=== PATIENT | male | born 1950 | race Caucasian/White ===

== ENCOUNTER 2017-04-22 07:09 | Observation (INO) | payer MEDICARE ==
[2017-04-22] MEDS ORDERED: LIDOCAINE 2% 20 ML VIAL. (07:33)
[2017-04-22 08:37] LABS: HEMATOCRIT 46.1 % (39.0-53.0); HEMOGLOBIN 16.5 g/dL (13.0-17.5); MEAN CORPUSCULAR HEMOGLOBIN 33 pg (25-35); MEAN CORPUSCULAR HGB CONC 36 g/dL (31-37); MEAN CORPUSCULAR VOLUME 91 fL (79-100); PLATELET COUNT 201 x10^3/uL (140-400); RED BLOOD COUNT 5.05 x10^6/uL (4.30-5.70); RED CELL DISTRIBUTION WIDTH 12.9 % (11.5-14.5); WHITE BLOOD COUNT 9.4 x10^3/uL (4.0-11.0)
[2017-04-22 08:45] LABS: ANION GAP 9 (6-14); BLOOD UREA NITROGEN 12 mg/dL (8-26); CALCIUM 9.6 mg/dL (8.5-10.1); CARBON DIOXIDE 28 mmol/L (21-32); CHLORIDE 101 mmol/L (98-107); GLUCOSE 109 mg/dL (70-99); SODIUM 138 mmol/L (136-145)
[2017-04-22 08:49] LABS: INR 1.1 (0.8-1.1); PROTHROMBIN TIME PATIENT 13.1 SEC (11.7-14.0)
[2017-04-22] MEDS ORDERED: IODIXANOL 320 MG/ML 100 ML VIAL. ×2 (09:32→10:56)
[2017-04-22] MEDS ORDERED: fentaNYL PF VIAL 100 MCG/2 ML VIAL (09:44)
[2017-04-22] MEDS ORDERED: MIDAZOLAM HCL/PF 2 MG/2 ML VIAL. (09:45)
[2017-04-22] MEDS ORDERED: VERAPAMIL 5 MG/2 ML VIAL. (09:48)
[2017-04-22] MEDS ORDERED: HEPARIN for IV BOLUS 10,000 UNIT/10 ML VIAL. ×2 (09:48→10:08)
[2017-04-22] MEDS ORDERED: NITROGLYCERIN 200 MCG/2 ML SYRINGE FOR CATH/VASC LAB. ×2 (09:49→10:38)
[2017-04-22] MEDS: LIDOCAINE 2% 20 ML VIAL. IJ (10:15)
[2017-04-22] MEDS: HEPARIN for IV BOLUS 10,000 UNIT/10 ML VIAL. IART (10:15)
[2017-04-22] MEDS: IODIXANOL 320 MG/ML 100 ML VIAL. IART (10:15)
[2017-04-22] MEDS: MIDAZOLAM HCL/PF 2 MG/2 ML VIAL. IV (10:15)
[2017-04-22] MEDS: NITROGLYCERIN 200 MCG/2 ML SYRINGE FOR CATH/VASC LAB. IART (10:15)
[2017-04-22] MEDS: VERAPAMIL 5 MG/2 ML VIAL. IART (10:15)
[2017-04-22] MEDS ORDERED: CONTRAST GIVEN MC (10:15)
[2017-04-22] MEDS: HEPARIN for IV BOLUS 10,000 UNIT/10 ML VIAL. IV (10:15)
[2017-04-22] MEDS: fentaNYL PF VIAL 100 MCG/2 ML VIAL IV (10:15)
[2017-04-22] MEDS ORDERED: TIROFIBAN 5MG -0.9% NS 100 ML IV (10:16)
[2017-04-22] MEDS: IV NORMAL SALINE 1000ML BAG 1,000 ML IV ×2 (10:45→22:57)
[2017-04-22] MEDS: PRASUGREL 10 MG TABLET. PO (11:15)
[2017-04-22] MEDS ORDERED: PRASUGREL 10 MG TABLET. (11:18)
[2017-04-22] MEDS: TIROFIBAN 5MG -0.9% NS 100 ML IV ×3 (11:39→23:27)
[2017-04-22] MEDS ORDERED: AMIODARONE 150 MG in IV DEXTROSE 5% 100 ML IV (16:15)
[2017-04-22] MEDS ORDERED: NITROGLYCERIN SUBLINGUAL 0.4 MG BOTTLE OF 25. SL (16:15)
[2017-04-22] MEDS ORDERED: fentaNYL PF VIAL 100 MCG/2 ML VIAL IV (16:15)
[2017-04-22] MEDS ORDERED: ATROPINE 0.5 MG/5 ML DISP.SYRIN. IV (16:15)
[2017-04-22] MEDS ORDERED: ACETAMINOPHEN 325 MG TABLET. PO (16:15)
[2017-04-22] MEDS ORDERED: 0.9 % SODIUM CHLORIDE 10 ML DISP.SYRIN. IV (16:15)
[2017-04-22] MEDS ORDERED: LIDOCAINE 2% 100 MG/5 ML SYRINGE. IV (16:15)
[2017-04-22] MEDS: ATORVASTATIN CALCIUM 20 MG TABLET PO (20:31)
[2017-04-22] MEDS: METOPROLOL TART IMMED RELEASE 25 MG TABLET. PO (20:32)
[2017-04-23 05:52] LABS: CHOLESTEROL 102 mg/dL (0-200); HDLC 40 mg/dL (40-60); LDLC 47 mg/dL (0-100); NON-HDL CHOLESTEROL 62 mg/dL (0-129); TRIGLYCERIDES 76 mg/dL (0-150); VLDLC 15 mg/dL (0-40)
[2017-04-23 05:53] LABS: CHOLESTEROL/HDL RATIO 2.6
[2017-04-23] MEDS: METOPROLOL TART IMMED RELEASE 25 MG TABLET. PO (09:39)
[2017-04-23] MEDS: PRASUGREL 10 MG TABLET. PO (09:39)
[2017-04-23] MEDS: ASPIRIN ENTERIC COATED 81 MG TABLET.DR. PO (09:39)
== END 2017-04-23 12:48 | disposition home or self-care (01) ==
LOC: CCL 07:09 → 2 NORTH 10:35
DX: I25.110 Atherosclerotic heart disease of native coronary artery with unstable angina pectoris (principal); R06.00 Dyspnea, unspecified; I10 Essential (primary) hypertension; E78.5 Hyperlipidemia, unspecified
CPT/HCPCS: 36415; 80048; 80061; 85027; 85610; 92928; 93454; 93571; 96365; 96366; 96375; 99152; 99153; C1713; C1725; C1769; C1887; C1892; G0378; G0379; J1644; J2250; J3010; J3490; J7030

== ENCOUNTER → 2019-08-25 | Outpatient (CLI) | payer MEDICARE ==
[2017-04-23 10:56] VITALS: BP 155/75
[~2019-08-25] MED LIST: AMLO5TAB10 PO; ASPI-482 PO; ATOR20TA PO; ATORVASTATIN CA80 MG PO; BIOT10TA PO; CALC500T31 PO; MAGN400C PO; METO25TA4 PO; METO50TA6 PO; OMEG1CAP38 PO; PRAS10TA9 PO; TURM500C4 PO; UBID100C PO; VITA-8 PO
== END | disposition home or self-care (01) ==
LOC: LAB 12:27
PROVIDERS: ATTEND Internal Medicine Gastroenterology
DX: Z11.59 Encounter for screening for other viral diseases (principal)
CPT/HCPCS: U0003-CS

== ENCOUNTER → 2019-08-31 | Day surgery (SDC) | payer MEDICARE ==
[~2019-08-31] MED LIST changes: +AZEL6DRO2 OD; +EVOL140P3 SQ; +FLUT15.812 NS; +HYDROmorphone 2 MG/ML VIAL IV PRN; +IV RINGERS,LACTATED 1000ML 1,000 ML IV SCH; +LIDOCAINE 1% PF 2 ML VIAL. ID PRN; +MELO7.5T29 PO; +MORPHINE SULFATE 2 MG/ML VIAL. IV PRN; +ONDANSETRON PF 4 MG/2 ML VIAL. IV PRN; +PROCHLORPERAZINE 10 MG/2 ML VIAL. IV PRN; +PROPOFOL 10 MG/ML (20ML) VIAL. IV ONE; +fentaNYL PF VIAL 100 MCG/2 ML VIAL IV PRN
[2019-08-31 13:42] VITALS: BP 147/86
== END | disposition home or self-care (01) ==
LOC: ENDOS 11:50
PROVIDERS: ATTEND Internal Medicine Gastroenterology
DX: R63.5 Abnormal weight gain (principal); K29.50 Unspecified chronic gastritis without bleeding; K22.2 Esophageal obstruction; I10 Essential (primary) hypertension; J43.9 Emphysema, unspecified; E78.00 Pure hypercholesterolemia, unspecified; F15.90 Other stimulant use, unspecified, uncomplicated; Z88.1 Allergy status to other antibiotic agents; Z88.8 Allergy status to other drugs, medicaments and biological substances; Z86.010 Personal history of colon polyps; Z87.39 Personal history of other diseases of the musculoskeletal system and connective tissue; Z87.891 Personal history of nicotine dependence; Z79.82 Long term (current) use of aspirin
CPT/HCPCS: 43235; 43450; J2704

== ENCOUNTER → 2020-02-12 | Outpatient (CLI) | payer MEDICARE ==
[2019-08-31 13:42] VITALS: BP 147/86
[~2020-02-12] MED LIST changes: +AMLO-186 PO; -AMLO5TAB10 PO; -HYDROmorphone 2 MG/ML VIAL IV PRN; -IV RINGERS,LACTATED 1000ML 1,000 ML IV SCH; -LIDOCAINE 1% PF 2 ML VIAL. ID PRN; -MORPHINE SULFATE 2 MG/ML VIAL. IV PRN; +OMEP20CA16 PO; -ONDANSETRON PF 4 MG/2 ML VIAL. IV PRN; -PROCHLORPERAZINE 10 MG/2 ML VIAL. IV PRN; -PROPOFOL 10 MG/ML (20ML) VIAL. IV ONE; -fentaNYL PF VIAL 100 MCG/2 ML VIAL IV PRN
== END ==
LOC: LAB 12:39
PROVIDERS: ATTEND Internal Medicine Gastroenterology
DX: Z01.812 Encounter for preprocedural laboratory examination (principal); R10.13 Epigastric pain; Z20.828 Contact with and (suspected) exposure to other viral communicable diseases
CPT/HCPCS: U0003

== ENCOUNTER → 2020-02-15 | Day surgery (SDC) | payer MEDICARE ==
[~2020-02-15] MED LIST changes: +IV RINGERS,LACTATED 1000ML 1,000 ML IV SCH
[2020-02-15 12:52] VITALS: BP 139/87
--- NOTE | 2020-02-15 13:52 | CONS ---
DATE OF CONSULTATION: 02/15/2020 REFERRING PHYSICIAN: Johny Grove MD. REASON FOR CONSULTATION: Dysphagia and followup on gastric ulcers, gastritis. HISTORY OF PRESENT ILLNESS: A 69-year-old male with past medical history significant for diverticulitis, colonic polyps, COPD, hypertension, hyperlipidemia is seen with recurrent dysphagia for solids, mainly substernal. The patient's prior dilatation 3 months ago did help. The patient has had a decrease in his PPI use due to diarrhea with continued issues, requests additional evaluation. PAST MEDICAL HISTORY: Hypertension, hyperlipidemia, COPD, diverticulitis, colonic polyps. ALLERGIES: INFLUENZA, PRAVACHOL, LEVOFLOXACIN. FAMILY AND SOCIAL HISTORY: Noncontributory. PAST SURGICAL HISTORY: Hemorrhoidectomy, ____, prostate surgery, CABG, colonic polyp removal. REVIEW OF SYSTEMS: Per records. PHYSICAL EXAMINATION: GENERAL: Reveals a well-nourished, well-developed male who is alert, cooperative, in no acute distress. VITAL SIGNS: Temperature 98.4, pulse 65, respiratory rate 20. LUNGS: Clear. CARDIOVASCULAR: Reveals an S1, S2 without S3, S4 or appreciable murmur. ABDOMEN: With a soft abdomen, normal bowel sounds without appreciable hepatosplenomegaly. IMPRESSION: Dysphagia, history of gastritis and NSAID use. Recommend EGD with possible biopsy and dilatation. Risks and benefits of procedure have been previously discussed. The patient is willing to proceed at this time. JHOANA RUSH MD DR: DORENE/brooke JOB#: [id number] / [id number]
== END | disposition home or self-care (01) ==
LOC: SURG 10:34
PROVIDERS: ATTEND Internal Medicine Gastroenterology
DX: R13.10 Dysphagia, unspecified (principal); K29.50 Unspecified chronic gastritis without bleeding; E78.00 Pure hypercholesterolemia, unspecified; I10 Essential (primary) hypertension; M19.90 Unspecified osteoarthritis, unspecified site; Z87.891 Personal history of nicotine dependence; Z79.82 Long term (current) use of aspirin; Z79.899 Other long term (current) drug therapy; Z98.890 Other specified postprocedural states; Z88.1 Allergy status to other antibiotic agents; Z88.8 Allergy status to other drugs, medicaments and biological substances
CPT/HCPCS: 43235; 43450

== ENCOUNTER → 2021-07-02 | Day surgery (SDC) | payer MEDICARE ==
[~2021-07-02] VITALS: Ht 180.3 cm; Wt 105.0 kg
[~2021-07-02] MED LIST changes: +ESOM40CA PO; +LIDOCAINE 2% PF 5 ML VIAL. ONE; +PROPOFOL 10 MG/ML (20ML) VIAL. IV ONE; -UBID100C PO; +UBID100C39 PO; +VIT1TABL34 PO
[2021-07-02 08:19] VITALS: BP 147/77
[2021-07-02 09:24] VITALS: BP 127/75
== END | disposition home or self-care (01) ==
LOC: SURG 07:40
PROVIDERS: ATTEND Internal Medicine Gastroenterology
DX: R13.10 Dysphagia, unspecified (principal); K29.50 Unspecified chronic gastritis without bleeding; K31.89 Other diseases of stomach and duodenum; K21.9 Gastro-esophageal reflux disease without esophagitis; I10 Essential (primary) hypertension; E78.00 Pure hypercholesterolemia, unspecified; M06.9 Rheumatoid arthritis, unspecified; Z87.891 Personal history of nicotine dependence; Z79.82 Long term (current) use of aspirin; Z79.899 Other long term (current) drug therapy; Z98.890 Other specified postprocedural states; Z88.8 Allergy status to other drugs, medicaments and biological substances
CPT/HCPCS: 43235; 43450; J2704